=== PATIENT | female | born 1980 | race African-American/Black ===

== ENCOUNTER 2020-12-05 11:51 | Emergency (ER) | payer OTHER ==
[~2020-12-05] VITALS: Ht 152.4 cm; Wt 60.3 kg
[2020-12-05 13:57] VITALS: BP 133/87
== END 2020-12-05 14:06 | disposition home or self-care (01) ==
LOC: ER 11:51
DX: S50.311A Abrasion of right elbow, initial encounter (principal); M25.531 Pain in right wrist; W19.XXXA Unspecified fall, initial encounter; Y93.89 Activity, other specified; Y92.89 Other specified places as the place of occurrence of the external cause; Y99.8 Other external cause status; X58.XXXA Exposure to other specified factors, initial encounter